=== PATIENT | female | born 1975 | race American Indian/Alaskan Native ===

== ENCOUNTER 2017-03-09 05:42 | Observation (INO) | payer OTHER ==
[2017-03-04 11:33] LABS: Basophils % (Auto) 0.9 % (0.0-1.8); Hematocrit 35.9 % (30.3-42.9); Hemoglobin 11.6 gm/dl (10.1-14.3); Mean Corpuscular HGB Conc 32 % (30-34); Mean Corpuscular Hemoglobin 26 pg (28-32); Mean Corpuscular Volume 81 fl (79-97); Platelet Count 406 K/mm3 (140-440); Red Blood Count 4.41 M/mm3 (3.65-5.03); Red Cell Distribution Width 15.2 % (13.2-15.2); White Blood Count 7.1 K/mm3 (4.5-11.0)
--- NOTE | 2017-03-04 11:41 | Anesthesia Consultation ---
Anesthesia Consult and Med Hx Date of service: 03/09/17 - Airway Anesthetic Teeth Evaluation: Good, Bridges ROM Head & Neck: Adequate Mental/Hyoid Distance: Adequate Mallampati Class: Class II Intubation Access Assessment: Good - Pulmonary Exam CTA: Yes - Cardiac Exam Cardiac Exam: RRR - Pre-Operative Health Status ASA Pre-Surgery Classification: ASA2 Proposed Anesthetic Plan: General - Cardiovascular System Hx Hypertension: Yes (x 8 yrs) - Central Nervous System Hx Back Pain: Yes Hx Psychiatric Problems: No - Gastrointestinal Hx Gastroesophageal Reflux Disease: Yes - Hematic Hx Anemia: Yes - Other Systems Hx Cancer: No
[2017-03-04 11:48] LABS: Anion Gap 16 mmol/L; BUN/Creatinine Ratio 17; Blood Urea Nitrogen 12 mg/dL (7-17); Calcium 8.4 mg/dL (8.4-10.2); Carbon Dioxide 27 mmol/L (22-30); Chloride 99.8 mmol/L (98-107); Glucose 112 mg/dL (65-100); Sodium 140 mmol/L (137-145)
--- NOTE | 2017-03-08 18:27 | History and Physical Report ---
History of Present Illness Date of examination: 03/04/17 Chief complaint: Menorhgia and endometrial mass History of present illness: Past History : 2 Term Births: 2 Living Children: 2 Para: 2 Prev : 1 # 1 Delivery date: 2000 Delivery type: # 2 Delivery type: CUSTODIAL SUPERVISOR History Operations: Cholecystectomy Tubal Ligation lipo suctions abdominoplasty 2014. cystoscopy, destruction of stones 2015 Abnormal PAP: positive Infection History HIV Risk Eval: no Personal hx. of genital herpes: no Partner hx. of genital herpes: no Hx of STD: None Active Medications: IBUPROFEN 800 MG ORAL TABLET (IBUPROFEN) 1 po TID (PRN) OXYCODONE-ACETAMINOPHEN 5-325 MG ORAL TABLET (OXYCODONE-ACETAMINOPHEN) 1-2po q6h ATENOLOL 25 MG ORAL TABLET (ATENOLOL) AMLODIPINE BESYLATE TABLET (AMLODIPINE BESYLATE TABS) HCTZ 25MG () Current Allergies: No known allergies Past Medical History: Reviewed history from 01/11/2017 and no changes required: Hypertension Kidney Stone [facility] Past Surgical History: Reviewed history from 01/11/2017 and no changes required: Cholecystectomy Tubal Ligation lipo suctions abdominoplasty 2014. cystoscopy, destruction of stones 2016 Family History Summary: Reviewed history Last on 08/04/2013 and no changes required:03/08/2017 MGM - Has Family History of Stomach Cancer - Entered On: 01/11/2017 Uncle - Has Family History Colon Cancer - maternal great - Entered On: 01/11/2017 Uncle - Has Family History of Lung Cancer - maternal - Entered On: 01/11/2017 Other family member - Has No Family History of Biliary Tract Cancer - Entered On : 01/11/2017 Other family member - Has No Family History of Brain Cancer - Entered On: 2016 Other family member - Has No Family History of DVT/PE on OCP - Entered On: 2016 Other family member - Has No Family History of Kidney/Urinary Tract Cancer - Entered On: 01/11/2017 Other family member - Has No Family History of Ovarvian Cancer - Entered On: Other family member - Has No Family History of Pancreatic Cancer - Entered On: Other family member - Has No Family History of Small Bowel Cancer - Entered On: 01/11/2017 Other family member - Has No Family History of Uterine Cancer - Entered On: 01/11 Aunt - Has Family History Breast Cancer - dx'd at age 43. 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 Risk Factors: PAP Smear History: Date of Last PAP Smear: 01/11/2017 Previous Tobacco Use: Signed On - 01/11/2017 Smoked Tobacco Use: Never smoker Smokeless Tobacco Use: Never Drug use: no HIV high-risk behavior: no Previous Alcohol Use: Signed On - 09/11/2014 Alcohol use: no Exercise: yes Times per week: 3-4 Seatbelt use: 100 % Mammogram History: Date of Last Mammogram: 02/15/2015 PAP Smear History: Date of Last PAP Smear: 01/11/2017 Review of Systems General Denies fever, chills, sweats, anorexia, fatigue, weakness, malaise, weight loss and sleep disorder. Complains of menorrhagia and abnormal vaginal bleeding. Denies vaginal discharge, incontinence, dysuria, hematuria, urinary frequency, amenorrhea, pelvic pain, genital sores, decreased libido, painful periods, painful sex, urinary urgency, hot flashes, vaginal dryness, vaginal itching and vaginal odor. CV Denies chest pains, palpitations, syncope, dyspnea on exertion, orthopnea, PND and peripheral edema. Resp Denies cough, dyspnea at rest, excessive sputum, hemoptysis, wheezing and pleurisy. GI Denies nausea, vomiting, diarrhea, constipation, change in bowel habits, abdominal pain, melena, hematochezia, jaundice, gas/bloating, indigestion/ heartburn, dysphagia and odynophagia. Endo Denies cold intolerance, heat intolerance, polydipsia, polyphagia, polyuria and unusual weight change. Breast Denies left breast lump, right breast lump, nipple discharge, bloody discharge from nipple, breast pain, abnormal mammogram and breast enlargement. MS Denies back pain, joint pain, joint swelling, muscle cramps, muscle weakness, stiffness, arthritis, sciatica, restless legs, leg pain at night and leg pain with exertion. Derm Denies rash, itching, dryness and suspicious lesions. Neuro Denies paralysis, paresthesias, headache, seizures, tremors, vertigo, transient blindness, frequent falls, frequent headaches and difficulty walking. Psych Denies depression, anxiety, irritability and mood swings. Eyes Denies blurring, diplopia, irritation, discharge, vision loss, eye pain and photophobia. ENT Denies earache, ear discharge, tinnitus, decreased hearing, nasal congestion, nosebleeds, sore throat and hoarseness. Allergy Denies urticaria, allergic rash, hay fever and recurrent infections. Heme Denies abnormal bruising, bleeding and enlarged lymph nodes. PHYSICAL EXAM Skin no lesions Chest: respiratory effort normal, clear to auscultation CV: regular, normal S1-S2, no murmur, no rub, no gallop Abdomen: soft, non-tender, no masses, Musculoskeletal: grossly normal ROM in joints, no joint tenderness or muscle weakness Extremities: warm, no edema CUSTODIAL SUPERVISOR Exams Vulva/Vagina: normal appearance, no discharge, lesions. No evidence of cystocele or rectocele. Cervix: normal appearance, no lesions, no discharge Uterus: normal position, midline, mobile Adnexae: no masses or tenderness Impression & Recommendations: Problem # 1: Excessive and frequent menstruation with irregular cycle (ICD- 626.6) (IUM83-W29.1) Diagnosis explained to patient . Questions answered. Discussed with patient various medical and surgical therapies common for treatment: Hormonal/medical therapy,endometrial ablation or hysterectomy. She desires to proceed with hysterectomy Consent reviewed and signed . Possible laparoscopy or laparotomy explained to patient. The risks and alternatives for this surgery were reviewed with the patient. She was informed of possible bleeding, infection, injury to bowel, bladder, ureters or other adjacent organs. She desires ovarian conservation. She was informed she may require surgery later to have her ovaries removed for a benign or mailgnant condition. She was also informed she will not be able to become after her uterus has been removed. The patient was instructed/informed the following: The normal length of hospital stay for this procedure. Nothing to eat or drink after midnight the evening prior to surgery. Clear liquids the day before surgery. Fleets enema the day prior to surgery. Pre-op instruction sheets given. Wound care instructions given. Infection precautions reviewed, patient to call for any signs or symptoms of infection. The usual discomforts associated with this procedure were detailed. Proper use of pain medicines was reviewed. Patient was given ample opportunity to have all her questions answered before signing informed consent. Problem # 2: Endometrial mass (ICD-236.0) (IHO60-Q42.0) Discussed excision of mass with or without ablation. She desires hysterectomy to ensure no further bleeding Problem # 3: FAMILY HISTORY BREAST CANCER (ICD-V16.3) (SAF41-G53.3) Hereditary cancer syndrome risks and associated cancers discussed with patient. Testing offered. Questions answered. Pamphlet given. She will call back w/ her decision Strongly encouraged testing prior to surgery. She was informed she may be have a 60% -70% chance of developing ovarian cancer if she carries a mutation. She voiced understanding and desires ovarian conservation at this time. Medications Added to Medication List This Visit: 1) Ibuprofen 800 Mg Oral Tablet (Ibuprofen) .... 1 po tid (prn) 2) Oxycodone-acetaminophen 5-325 Mg Oral Tablet (Oxycodone-acetaminophen) .... 1-2po q6h Prescriptions: IBUPROFEN 800 MG ORAL TABLET (IBUPROFEN) 1 po TID (PRN) #60 x 1 Entered and Authorized by: Trisha Marroquin MD Method used: Print then Give to Patient RxID: [id number] OXYCODONE-ACETAMINOPHEN 5-325 MG ORAL TABLET (OXYCODONE-ACETAMINOPHEN) 1-2po q6h #20 x 0 Entered and Authorized by: Trisha Marroquin MD Method used: Print then Give to Patient RxID: [id number] Medications and Allergies Allergies Allergy/AdvReac Type Severity Reaction Status Date / Time No Known Allergies Allergy Unverified 03/03/17 17:19 Home Medications Medication Instructions Recorded Confirmed Last Taken Type Famotidine [Heartburn Prevention] 20 mg PO BID 03/04/17 03/04/17 Unknown History Hydrochlorothiazide [HCTZ] 25 mg PO QDAY 03/04/17 03/04/17 Unknown History Metoprolol [Lopressor] 25 mg PO DAILY 03/04/17 03/04/17 Unknown History amLODIPine [Norvasc] 10 mg PO DAILY 03/04/17 03/04/17 Unknown History Active Meds: Active Medications Lactated Ringer's (Lactated Ringers) 1,000 mls @ 100 mls/hr IV DIRECT JESSICA Cefazolin Sodium (Ancef/Sterile Water 2 Gm/20 Ml) 2 gm in 20 mls @ 80 mls/hr IV PREOP NR PRN Reason: Protocol Exam Vital Signs Temp Pulse Resp BP 98.6 F 60 14 142/88 03/04/17 11:00 03/04/17 11:00 03/04/17 11:00 03/04/17 11:00 Results - Labs 03/04/17 11:15 03/04/17 11:15 Assessment and Plan - Patient Problems (1) Excessive and frequent menstruation with regular cycle Status: Acute (2) Endometrial mass Status: Acute
[~2017-03-09 05:42] MED LIST: ANCEF/STERILE WATER 2 GM/20 ML 2 GM/20 ML SYRINGE IV NR; LACTATED RINGERS 1,000 ML IV SCH; PEPCID PO NR; VERSED IV NR
[2017-03-09] MEDS ORDERED: NACL BACTERIOSTATIC INFILTRATI ONE (06:27)
[2017-03-09] MEDS ORDERED: VERSED IV NR (07:30)
[2017-03-09] MEDS ORDERED: PEPCID PO NR (07:30)
[2017-03-09] MEDS ORDERED: DIPRIVAN 10 MG/ML IV ONE (07:49)
[2017-03-09] MEDS ORDERED: DILAUDID ONE ×2 (07:49→11:50)
[2017-03-09] MEDS ORDERED: XYLOCAINE MPF 2% ONE (07:51)
[2017-03-09] MEDS ORDERED: ZEMURON IV ONE (07:51)
[2017-03-09] MEDS ORDERED: CALCIUM CHLORIDE IV ONE (07:58)
[2017-03-09] MEDS ORDERED: NEOSPORIN GU IR ONE ×2 (07:58→10:09)
[2017-03-09] MEDS ORDERED: THROMBIN (BOVINE) TP ONE (07:58)
[2017-03-09] MEDS ORDERED: NEURONTIN PO NR (08:00)
[2017-03-09] MEDS ORDERED: MARCAINE 0.5% 30 ML INFILTRATI ONE (08:58)
[2017-03-09] MEDS ORDERED: DECADRON ONE (09:04)
[2017-03-09] MEDS ORDERED: ZOFRAN ONE (09:04)
[2017-03-09] MEDS ORDERED: ROBINUL ONE (09:43)
[2017-03-09] MEDS ORDERED: NEOSTIGMINE ONE (09:43)
[2017-03-09] MEDS ORDERED: TORADOL ONE (09:47)
[2017-03-09] MEDS ORDERED: NEO SYNEPHRINE/NS Syringe(OR USE) IV ONE (10:00)
[2017-03-09] MEDS ORDERED: METOPROLOL 25 MG PO SCH (10:00)
[2017-03-09] MEDS ORDERED: HYDROCHLOROTHIAZIDE 25 MG PO SCH (10:00)
[2017-03-09] MEDS ORDERED: AMLODIPINE 10 MG PO SCH (10:00)
[2017-03-09] MEDS ORDERED: NORVASC PO SCH (10:00)
[2017-03-09] MEDS ORDERED: LOPRESSOR PO SCH (10:00)
[2017-03-09] MEDS ORDERED: HCTZ PO SCH (10:00)
[2017-03-09] MEDS ORDERED: FAMOTIDINE 20 MG PO SCH (10:00)
[2017-03-09] MEDS ORDERED: WATER FOR IRRIG STERILE IR ONE (10:09)
[2017-03-09] MEDS ORDERED: MARCAINE 0.5% INFILTRATI ONE (10:09)
[2017-03-09] MEDS ORDERED: NACL 0.9% IR ONE (10:10)
[2017-03-09] MEDS ORDERED: LACTATED RINGERS 1,000 ML ONE (10:35)
--- NOTE | 2017-03-09 10:53 | Anesthesia Day of Surgery ---
Anesthesia Day of Surgery - Day of Surgery Patient Examined: Yes Patient H&P Reviewed: Yes Patient is NPO: Yes Beta Blockers: Yes
[2017-03-09] MEDS: DILAUDID IV PRN ×3 (11:20→11:49)
--- NOTE | 2017-03-09 11:32 | Operative Report ---
Operative Report Operative Report: Date: 03/09/2017 Preoperative diagnosis: 1. Menorrhagia 2. Endometrial mass Postoperative diagnosis: 1. Menorrhagia 2. Endometrial mass 3. Left ovarian cyst 4. Left paraovarian cyst 5. Endometriosis Procedure: 1. Robot assisted total hysterectomy 2. Bilateral salpingectomy 3. Left ovarian cystectomy 4. Left paraovarian cystectomy 5. Ablation of endometriosis Surgeon: Trisha Marroquin MD Ladies Locker Room Attendant: Kamla Larose M.D. Anesthesiologist: Damaso Cobb Anesthesia: General endotracheal anesthesia EBL: Approximately 100 mL Findings: Exam under anesthesia was unremarkable. Uterus is sounded to 8 cm. Above findings noted Procedure: Patient was taken to the OR and placed in the supine position. General anesthesia was induced and an oral gastric tube was placed. Her neck and head were placed on foam support. Foam eye protection with goggles were secured in place. Then foam face protection was placed and secured. Foam shoulder pads were then positioned on her shoulders for Trendelenburg positioning. She was then placed in dorsolithotomy position. Exam under anesthesia remarkable. The abdomen and vagina were then prepped and draped in the usual sterile fashion. Timeout was performed. A Chaves catheter was inserted into the bladder with drainage of clear yellow urine. The operative speculum was introduced into the vagina and the anterior lip of the cervix was grasped with single-toothed tenaculum. The uterus was sounded to 8 cm. The cervix was progressively dilated to allow the large V care uterine manipulator. The bulb of the manipulator was inflated and the speculum and tenaculum were removed. The cup of the manipulator was placed around the cervix and the blue occluder of the manipulator was properly positioned in the vagina. A laparotomy sponge that was saturated with a solution of neomycin/polymyxin and saline was placed in the vagina to ensure pneumoperitoneum. Sterile gloves were placed and attention was turned to the abdomen. A 10 mm vertical supraumbilical incision was made approximately 10 cm superior to the elevated fundus of the uterus. A 12 mm trocar with the laparoscope and camera attached was introduced through this incision under direct visualization. The abdomen was insufflated. No obvious bowel, bladder, ureteral, or major vascular injury was noted. The patient was then placed in steep Trendelenburg position and the following trochars were placed under direct visualization: 8 mm robotic trochars were placed through incisions made in the bilateral midclavicular lower abdominal region approximately 10 cm lateral and approximately 2 cm below the midline incision, and a 5 mm trocar was placed through an incision made in the right lower lateral pelvis approximately 2 cm superior to the iliac crest. The 10 mm laparoscope was then replaced by a 5 mm laparoscope that was placed through the 5 millimeter lateral trocar. The 12 mm trocar was then removed in the Giovanni Biswas fascial closure device was placed through the incision and a 0 Vicryl was placed through the fascia. Once the suture was secured the 12 mm trocar was reintroduced. Once the trochars were in the appropriate positions, the the da Rajesh robot system was engaged. The EndoShears and bipolar device was placed through the 8 mm trochars and positioned then attention was turned to the console. The uterus was elevated and bilateral salpingectomy was performed. Each tube was removed through the 5 mm trocar and sent to pathology in separate containers. Then the utero-ovarian ligaments were clamped. cauterized and incised bilaterally using 30 W of energy. Then the round ligaments were clamped , cauterized and incised bilaterally. The anterior leaf of the broad ligament was elevated and careful blunt and sharp dissection the bladder flap was created and dissected away from the lower uterine segment and cervix. The posterior leaf of the broad ligament was dissected away from the uterine vessels. The cup of the uterine manipulator was palpated both anteriorly and posteriorly. Course of the ureters was visualized and was confirmed to be away from the operative field. The uterine vessels were then clamped and cauterized bilaterally. Blanching of the uterus was then noted. Attention was again turned to the anterior lower uterine segment and the bladder was confirmed to be away from the operative field. Then attention was turned again to the posterior where the cup of the manipulator was palpated and a colpotomy was performed down to the cup. The incision was extended in the lateral position the uterine vessels that were again clamped and cauterized and incised. Continuing along the cup of the manipulator in a circumferential manner the colpotomy was completed. The uterus and cervix were then removed through the vaginal incision. The pelvis was irrigated with warm normal saline. A moist laparotomy sponge was placed in the vagina to maintain pneumoperitoneum. The vagina cuff was reapproximated using V LOC 180 suture in a simple running stitch. Then a J stitch was performed to secure the suture. Again the pelvis was copiously irrigated with neomycin /polymixin in warm normal saline. The laparotomy sponge was easily removed from the vagina. No bowel, bladder, ureteral or major vascular injury was noted. Attention was turned to the left ovary where ovarian and paraovarian cystectomy were performed. Implant of endometriosis on the left proximal ureterosacral ligament that was ablated. Once hemostasis was noted, which plasma was applied to the operative field to ensure hemostasis. Then the poor plasma was applied to the operative field to decrease formation of adhesions. Again hemostasis was noted. Grossly normal appendix was noted. The ureters were noted to be peristalsing and away from the operative field. Then the instruments were removed, the robot was disengaged. The 12 mm trocar was removed and the fascia was ligated with the 0 Vicryl suture that was placed at the beginning of the procedure. The patient was taken out of Trendelenburg position, the abdomen was desufflated, the remaining trochars were removed. Incisions were reapproximated using 4-0 Vicryl in a subcuticular manner. Incisions were infused with half percent Marcaine without epinephrine and Surgiseal was placed over the incisions. The vagina was then inspected, no bleeding was noted and clear yellow urine was draining into the Chaves bag from the bladder at the end of the procedure. Patient was taken to recovery room in stable condition. There was drainage of clear yellow urine into the Chaves catheter at the end of the procedure as well as in recovery.
--- NOTE | 2017-03-09 11:48 | Post Anesthesia Evaluation ---
- Post Anesthesia Evaluation Patient Participated: Yes Airway Patent: Yes Stable Respiratory Function: Yes Nausea/Vomiting: No Temp > 96.8F: Yes Pain Manageable: Yes Adequeate Hydration: Yes Anesthesia Complications: No Block Receding Appropriately: Not Applicable Patient on Ventilator: No
[2017-03-09] MEDS ORDERED: ZOFRAN IV PRN (12:53)
[2017-03-09] MEDS ORDERED: REGLAN IV PRN (12:53)
[2017-03-09] MEDS ORDERED: TYLENOL PR PRN (12:53)
[2017-03-09] MEDS ORDERED: ANCEF/NS 1 GM/50 ML 1 GM/50 ML BAG IV SCH (14:00)
[2017-03-09] MEDS ORDERED: TORADOL IV SCH (15:00)
[2017-03-09] MEDS: LACTATED RINGERS 1,000 ML IV SCH (17:47)
[2017-03-09] MEDS ORDERED: TYLENOL PO SCH ×2 (18:00)
--- NOTE | 2017-03-09 19:05 | Progress Note ---
Assessment and Plan - Patient Problems (1) History of robot-assisted laparoscopic hysterectomy Current Visit: Yes Status: Acute Plan to address problem: Doing well, operative findings and procedures explained, plan of care discussed , questions answered. (2) Status post bilateral salpingectomy Current Visit: Yes Status: Acute (3) Excessive and frequent menstruation with regular cycle Current Visit: Yes Status: Resolved (4) Endometrial mass Current Visit: Yes Status: Resolved Subjective - Subjective Date of service: 03/09/17 Principal diagnosis: DOS RATH; (B) salpingectomy Interval history: States she's hungry, no other complaints Patient reports: appetite normal, voiding normally, pain well controlled Objective - Vital Signs Latest vital signs: Vital Signs Temp Pulse Resp BP BP Pulse Ox 03/09/17 16:31 98.4 F 68 16 128/72 03/09/17 12:40 98.8 F 85 16 133/85 94 03/09/17 12:12 14 03/09/17 12:00 98.1 F 63 14 131/77 95 03/09/17 11:49 13 03/09/17 11:45 14 138/61 96 03/09/17 11:30 98.2 F 59 L 16 135/84 99 03/09/17 11:20 18 03/09/17 11:15 75 21 139/83 95 03/09/17 11:00 70 20 142/83 97 03/09/17 10:55 73 21 132/84 98 03/09/17 10:50 78 20 140/79 97 03/09/17 10:45 97.2 F L 84 15 135/88 95 03/09/17 06:59 97.9 F 76 16 143/87 97 03/09/17 06:20 97.9 F 76 16 143/87 97 Intake and Output 03/09/17 03/09/17 03/09/17 06:59 14:59 22:59 Intake Total 475 560 Output Total 500 300 Balance -25 260 Intake: IV 475 Right Hand 125 Oral 560 Output: Urine 500 300 Indwelling Catheter 300 Uretheral (Chaves) 200 Other: Total, Intake Amount 560 Total, Output Amount 300 Voiding Method Toilet Indwelling Catheter - Exam Breasts: Present: deferred Cardiovascular: Present: Regular rate Lungs: Present: Clear to auscultation, Normal air movement Abdomen: Present: normal appearance, soft, normal bowel sounds Extremities: Present: normal. Absent: tenderness - Labs Labs: Abnormal lab results 03/09/17 03/09/17 Range/Units 06:40 17:08 Potassium 3.1 L 3.4 L (3.6-5.0) mmol/L
[2017-03-09] MEDS: TYLENOL PO SCH (21:05)
[2017-03-09] MEDS: ANCEF/NS 1 GM/50 ML 1 GM/50 ML BAG IV SCH (21:07)
[2017-03-09] MEDS ORDERED: PEPCID PO SCH (22:00)
[2017-03-09] MEDS: TORADOL IV SCH (23:59)
[2017-03-10] MEDS: LACTATED RINGERS 1,000 ML IV SCH (01:50)
[2017-03-10] MEDS: TYLENOL PO SCH ×2 (02:56→10:44)
[2017-03-10 04:44] LABS: Hematocrit 30.5 % (30.3-42.9); Hemoglobin 9.9 gm/dl (10.1-14.3)
[2017-03-10] MEDS: ANCEF/NS 1 GM/50 ML 1 GM/50 ML BAG IV SCH (05:01)
[2017-03-10] MEDS: TORADOL IV SCH ×2 (05:04→13:01)
--- NOTE | 2017-03-10 08:45 | Discharge Summary ---
Providers - Providers Date of Admission: 03/09/17 10:59 Date of discharge: 03/10/17 Attending physician: KEANU ROLLINS Primary care physician: ANNA CATES Hospitalization Condition: Good Procedures: 1. Robot assisted total hysterectomy 2. Bilateral salpingectomy 3. Left ovarian cystectomy 4. Left paraovarian cystectomy 5. Ablation of endometriosis Hospital course: uncomplicated Disposition: DC-01 TO HOME OR SELFCARE - Discharge Diagnoses (1) History of robot-assisted laparoscopic hysterectomy Status: Acute (2) Status post bilateral salpingectomy Status: Acute (3) Excessive and frequent menstruation with regular cycle Status: Resolved (4) Endometrial mass Status: Resolved Core Measure Documentation - Palliative Care Palliative Care/ Comfort Measures: Not Applicable - Core Measures Any of the following diagnoses?: none Exam - Constitutional Vitals: Temp Pulse Resp BP Pulse Ox 98.6 F 71 16 117/66 94 03/10/17 04:20 03/10/17 04:20 03/10/17 04:20 03/10/17 04:20 03/09/17 12:40 General appearance: Present: no acute distress - Respiratory Respiratory effort: normal Respiratory: negative: CTA - Cardiovascular Rhythm: regular - Extremities Extremities: no ischemia, No edema - Abdominal General gastrointestinal: Present: soft, non-tender, non-distended, normal bowel sounds Female genitourinary: Present: deferred - Integumentary Integumentary: Present: clear, warm, dry (incisions c/d/i) - Musculoskeletal Musculoskeletal: strength equal bilaterally Plan Activity: other (No sex. Ambulate on your property for 1mile a day. ) Weight Bearing Status: Weight Bear as Tolerated Diet: regular (Eat small meals frequently. Drink 80oz water a day, void frequently) Special Instructions: no heavy lifting (>15#) Additional Instructions: Call Dr. Cates today to inform him of potassium level of 3.4 on 03/09/2017 Follow up with: ANNA CATES MD [Primary Care Provider] - 7 Days KEANU ROLLINS MD [Staff Physician] - (As scheduled)
[2017-03-10 13:57] VITALS: BP 127/75
== END 2017-03-10 13:15 | disposition home or self-care (01) ==
LOC: OR 05:42 → OB 10:59
PROVIDERS: ADMIT Obstetrics & Gynecology; ATTEND Obstetrics & Gynecology
DX: N92.0 Excessive and frequent menstruation with regular cycle (principal); N80.9 Endometriosis, unspecified; N83.202 Unspecified ovarian cyst, left side; D39.0 Neoplasm of uncertain behavior of uterus; I10 Essential (primary) hypertension; K21.9 Gastro-esophageal reflux disease without esophagitis; Z90.49 Acquired absence of other specified parts of digestive tract; Z98.51 Tubal ligation status; Z87.442 Personal history of urinary calculi
CPT/HCPCS: 36415; 58571; 58662; 80048; 81025; 84132; 85014; 85018; 85025; 86850; 86900; 86901; 88305; 88307; 96365; 96375; 96376; A4217; G0378; J0690; J1100; J1170; J1885; J2250; J2370; J2405; J2704; J2710; J7120; S2900; 88302